=== PATIENT | male | born 1950 | race Caucasian/White ===

== ENCOUNTER 2017-04-05 21:54 | Emergency (ER) | payer OTHER, MEDICARE ==
[~2017-04-05] VITALS: Ht 182.9 cm; Wt 90.7 kg
[~2017-04-05 21:54] MED LIST: ADVIL100 M2 PO; COLACE100 MG PO; COUMADIN 2 MG TA2 M1 PO; COUMADIN 5 MG TA5 M1 PO; ENOXAPARIN40 MG/0.1 INJECTION; HYDROCODON-ACE1 EAC1 PO; IBUPROFEN 200200 M1 PO; NORCO 10-325 T1 EACH PO; OXYCONTIN10 M1 PO; PRILOSEC 20 MG20 MG PO; TRAMADOL 50 MG50 MG PO
== END 2017-04-06 01:28 | disposition home or self-care (01) ==
LOC: ER 21:54
DX: S01.01XA Laceration without foreign body of scalp, initial encounter (principal); F17.210 Nicotine dependence, cigarettes, uncomplicated; F10.99 Alcohol use, unspecified with unspecified alcohol-induced disorder; Z98.890 Other specified postprocedural states; W18.09XA Striking against other object with subsequent fall, initial encounter; Y93.89 Activity, other specified; Y92.092 Bedroom in other non-institutional residence as the place of occurrence of the external cause; Y99.8 Other external cause status

== ENCOUNTER → 2017-07-17 | Outpatient (CLI) | payer OTHER, MEDICARE ==
[~2017-07-17] MED LIST changes: +BACTRIM DS TAB1 EACH PO
== END ==
LOC: NUC 08:10
DX: M25.561 Pain in right knee (principal); M79.89 Other specified soft tissue disorders; K21.9 Gastro-esophageal reflux disease without esophagitis; M81.0 Age-related osteoporosis without current pathological fracture; Z96.651 Presence of right artificial knee joint

== ENCOUNTER 2017-08-04 08:49 | Emergency (ER) | payer OTHER, MEDICARE ==
[~2017-08-04] VITALS: Ht 180.3 cm; Wt 88.5 kg
[~2017-08-04 08:49] MED LIST changes: -BACTRIM DS TAB1 EACH PO
[2017-08-04] MEDS ORDERED: BACTRIM DS TAB1 EACH PO (09:16)
[2017-08-04] MEDS ORDERED: TRAMADOL 50 MG50 MG PO (09:16)
[2017-08-04 09:25] VITALS: BP 132/67
== END 2017-08-04 09:55 | disposition home or self-care (01) ==
LOC: ER 08:49
DX: L97.819 Non-pressure chronic ulcer of other part of right lower leg with unspecified severity (principal); Z90.49 Acquired absence of other specified parts of digestive tract; Z98.890 Other specified postprocedural states

== ENCOUNTER → 2017-08-06 | Outpatient (CLI) | payer OTHER, MEDICARE ==
[~2017-08-06] MED LIST changes: +BACTRIM DS TAB1 EACH PO
== END ==
LOC: HYPER 06:42
DX: T81.89XA Other complications of procedures, not elsewhere classified, initial encounter (principal); I87.311 Chronic venous hypertension (idiopathic) with ulcer of right lower extremity; L97.811 Non-pressure chronic ulcer of other part of right lower leg limited to breakdown of skin; I73.9 Peripheral vascular disease, unspecified; M19.90 Unspecified osteoarthritis, unspecified site; F17.210 Nicotine dependence, cigarettes, uncomplicated; Z72.89 Other problems related to lifestyle; Y92.89 Other specified places as the place of occurrence of the external cause; Y83.8 Other surgical procedures as the cause of abnormal reaction of the patient, or of later complication, without mention of misadventure at the time of the procedure

== ENCOUNTER → 2017-08-13 | Outpatient (CLI) | payer OTHER, MEDICARE | LOC: HYPER 06:36 | DX: T81.89XD Other complications of procedures, not elsewhere classified, subsequent encounter (principal); I87.311 Chronic venous hypertension (idiopathic) with ulcer of right lower extremity; L97.811 Non-pressure chronic ulcer of other part of right lower leg limited to breakdown of skin; I73.9 Peripheral vascular disease, unspecified; M19.90 Unspecified osteoarthritis, unspecified site; F17.210 Nicotine dependence, cigarettes, uncomplicated; Y83.8 Other surgical procedures as the cause of abnormal reaction of the patient, or of later complication, without mention of misadventure at the time of the procedure ==

== ENCOUNTER → 2019-04-08 | Outpatient (CLI) | payer OTHER, MEDICARE ==
[~2019-04-08] VITALS: Ht 180.3 cm; Wt 90.7 kg
[~2019-04-08] MED LIST changes: +OMEPRAZOLE 20 M20 M1 PO; +ROPINIROLE HCL4 MG PO; +VITAMIN D2000 UNIT PO; +XARELTO20 MG PO
--- NOTE | 2019-04-10 08:09 | P ---
[facility] [place] [address] PROCEDURE REPORT Name: JEM HENSLEY [facility] [id number] Admission: 04/08/19 Attend Phys: Luis Manuel Rogers Discharge: Date of : 52 Report #: [id number] THIS REPORT FOR: //name// CC: Luis Manuel Motley MD DATE OF SERVICE: 04/08/2019 PROCEDURE PERFORMED: Colonoscopy with biopsies. HISTORY OF PRESENT ILLNESS: The patient is a 69-year-old male who I was asked to see colonoscopy greater than 10 years ago. He does report several episodes of bright red blood per rectum, typically with constipation. No family history of colon cancer. He apparently is scheduled for hemorrhoid surgery in the near future. DESCRIPTION OF PROCEDURE: The risks and benefits of the procedure were explained to the patient, those risks including but not limited to bleeding, perforation and the risk of sedation. He understood these risks and gave informed consent. Sedation was given using propofol per anesthesia. Next, a digital rectal exam was initially performed, which was normal. Next, using a standard Olympus upper colonoscope, the scope was placed in the patient's anus and advanced under direct vision to the cecum. The overall prep was good in most areas. It was fair in some areas. Multiple washings and aspirations were performed. Most areas were well visualized. The cecum and ileocecal valve were normal in appearance. In the ascending colon, a 5 mm sessile polyp was noted. This was removed with cold forceps, otherwise normal. The transverse, descending and sigmoid colon were normal. The rectal mucosa was normal. On retroflexion, medium size nonbleeding internal hemorrhoids were noted. Close examination of the anal canal showed no evidence of anal fissure. Small external hemorrhoid also noted. No evidence of bleeding. The scope was then withdrawn and the procedure terminated. The patient tolerated the procedure well. IMPRESSION: 1. Small colonic polyp. 2. Internal and external hemorrhoids. 3. Otherwise, normal colonoscopy. RECOMMENDATIONS: 1. Await biopsy results. 2. Repeat colonoscopy in [address] [address] PROCEDURE REPORT Name: JEM HENSLEY Room #: REG [facility] Christopher#: [id number] Admission: 04/08/19 Attend Phys: Luis Manuel Rogers Discharge: Date of : 52 Report #: [id number] Thank you for allowing me to participate in his care. <ELECTRONICALLY SIGNED> By: Luis Manuel Jackson MD 04/10/19 0809 [id number] [id number] Luis Manuel Jackson MD /nt
--- NOTE | 2019-04-10 08:09 | P ---
[facility] [place] [address] PROCEDURE REPORT Name: JEM HENSLEY Room #: REG THU White#: [id number] Admission: 04/08/19 Attend Phys: Luis Manuel Rogers Discharge: Date of : 52 Report #: [id number] THIS REPORT FOR: //name// CC: Luis Manuel Romano MD DATE OF SERVICE: 04/08/2019 PROCEDURE PERFORMED: Upper endoscopy with biopsies. HISTORY OF PRESENT ILLNESS: The patient is a 69-year-old male with a long history of gastroesophageal reflux disease, currently taking Prilosec 20 mg b.i.d. He denies any significant heartburn symptoms in general. Denies any dysphagia. Last upper endoscopy several years ago showed a possible segment of Arnold's. Biopsies were actually negative at that time for Arnold's esophagus. Plan is for repeat upper endoscopy and colonoscopy today. DESCRIPTION OF PROCEDURE: The risks and benefits of the procedure were explained to the patient, those risks including but not limited to bleeding, perforation and the risk of sedation. He understood these risks and gave informed consent. Sedation was given using propofol per Anesthesia. Next, using a standard Olympus upper endoscope, the scope was placed in the patient's mouth and advanced under direct vision through the esophagus, stomach and into the second portion of the duodenum. The upper and mid esophagus was normal in appearance. In the distal esophagus, a pink mucosal tongue extended approximately 3 cm above the GE junction consistent with possible Arnold's esophagus. Biopsies were obtained. No evidence of esophagitis or stricture. Overall, the gastric mucosa was normal. The pylorus was normal and patent. The duodenal bulb, first and second portion were all normal. The scope was then withdrawn and the procedure terminated. The patient tolerated the procedure well. IMPRESSION: 1. Possible short segment Arnold's esophagus. 2. Otherwise, normal upper endoscopy. RECOMMENDATIONS: 1. Await biopsy results. 2. Continue PPI therapy. 3. We will proceed with colonoscopy next today. [address] [address] PROCEDURE REPORT Name: JEM HENSLEY Room #: REG THU White#: [id number] Admission: 04/08/19 Attend Phys: Luis Manuel Rogers Discharge: Date of : 52 Report #: [id number] Thank you for allowing me to participate in his care. <ELECTRONICALLY SIGNED> By: Luis Manuel Jackson MD 04/10/19 0809 0849 2131 Luis Manuel Jackson MD /nt
--- NOTE | 2019-04-10 14:07 | PATH ---
[facility] [place] [address] PATHOLOGY RPT PROCEDURE Name: SHELLIEJEM MEGAN Room #: REG CLBruce MLakeishaR.#: [id number] Admission: 04/08/19 Date of : 52 Discharge: Report #: [id number] Path Case #: [id number] [facility] Accession Number: [id number] . 01 Material submitted: . PART A: esophagus - BX DISTAL ESOPHAGUS. Modifiers: distal PART B: colon - POLYP AT ASCENDING COLON. Modifiers: ascending . 01 Clinical history: . Arnold's, rectal bleeding Possible Arnold's, colon polyp, hemorrhoids A. Rule out Arnold's esophagus . 02 Diagnosis: A. Esophagus, distal, biopsy: - Squamocolumnar epithelium with intestinal metaplasia, findings compatible with Arnold's esophagus. - Mild chronic inflammation. - No evidence of dysplasia. . B. Colon, ascending, biopsy: - Hyperplastic polyps, 2. (JITENDRA:rosalba; 04/10/2019) S 04/10/2019 0950 Local . 02 Electronically signed: . Benny Martinez MD, Pathologist NPI- [id number] . 01 Gross description: . A. The specimen is received in formalin, labeled "Jem Muñoz, BX distal esophagus" and consists of 3 fragments of coker tissue measuring between 0.2 x 0.2 cm and 0.4 x 0.4 cm which are entirely submitted in A1. . B. The specimen is received in formalin, labeled "Jem Muñoz, polyp at ascending colon" and consists of 2 fragments of coker tissue measuring 0.4 x 0.3 cm each which are entirely submitted in B1. (SDY; 04/09/2019) SYU/SYU 04/09/2019 1034 Local . 02 Pathologist provided ICD-10: K22.70, K63.5 . 02 CPT . 787995, 836387 Specimen Comment: A courtesy copy of this report has been sent to Specimen Comment: [phone], [phone]. [address] [address] PATHOLOGY RPT PROCEDURE Name: JEM MUÑOZ Room #: REG THU White#: [id number] Admission: 04/08/19 Date of : 52 Discharge: Report #: [id number] Path Case #: [id number] Specimen Comment: Report sent to / DR JACK Performed at: [address], [place], [place] [id number] MD Iggy Buckner MD Phone: [phone] Performed at: [address] [id number] MD Sheridan Ruggiero MD Phone: [phone]
== END | disposition home or self-care (01) ==
LOC: GI 06:58
DX: K62.5 Hemorrhage of anus and rectum (principal); K63.5 Polyp of colon; K59.00 Constipation, unspecified; K64.8 Other hemorrhoids; K60.2 Anal fissure, unspecified; K64.4 Residual hemorrhoidal skin tags; K20.9 Esophagitis, unspecified; K21.9 Gastro-esophageal reflux disease without esophagitis; F17.210 Nicotine dependence, cigarettes, uncomplicated; I73.89 Other specified peripheral vascular diseases; Z86.718 Personal history of other venous thrombosis and embolism; Z90.49 Acquired absence of other specified parts of digestive tract; Z79.899 Other long term (current) drug therapy
CPT/HCPCS: 62110; 62900

== ENCOUNTER → 2019-04-16 | Outpatient (CLI) | payer OTHER, MEDICARE | LOC: ULTRA 14:47 | DX: M79.89 Other specified soft tissue disorders (principal); M79.604 Pain in right leg; M79.605 Pain in left leg ==

== ENCOUNTER → 2021-04-26 | Outpatient (CLI) | payer OTHER, MEDICARE ==
[~2021-04-26] MED LIST changes: +FLEXERIL PO; +MIRAPEX1 MG PO
== END | disposition home or self-care (01) ==
LOC: LAB 08:52
PROVIDERS: ATTEND Student in an Organized Health Care Education/Training Program
DX: Z01.818 Encounter for other preprocedural examination (principal); Z20.822 Contact with and (suspected) exposure to COVID-19

== ENCOUNTER → 2021-04-28 | Outpatient (CLI) | payer OTHER, MEDICARE ==
[~2021-04-28] VITALS: Ht 180.3 cm; Wt 97.5 kg
--- NOTE | ~2021-04-28 | P ---
[facility] [place] [address] [address] PROCEDURE REPORT Name: JEM HENSLEY Room #: REG [facility] Marisela.#: [id number] Admission: 04/28/21 Attend Phys: Luis Manuel Rogers Discharge: Date of : 52 Report #: [id number] THIS REPORT FOR: cc: Francis Romano MD, Neal A. MD McElhinney, Christian C. MD ~ cc: Francis Romano MD DATE OF SERVICE: 04/28/2021 PROCEDURE PERFORMED: Flexible sigmoidoscopy with polypectomy. HISTORY OF PRESENT ILLNESS: The patient is a 71-year-old male who reports intermittent bright red blood per rectum, typically with wiping. He does have a history of constipation and takes fiber in general. He underwent a colonoscopy by myself on 04/08/2019, small polyp was removed. Internal and external hemorrhoids were seen, otherwise normal. No family history of colon cancer. DESCRIPTION OF PROCEDURE: The risks and benefits of the procedure were explained to the patient, those risks including but not limited to bleeding, perforation and the risk of sedation. He understood these risks and gave informed consent. Sedation was given using propofol per anesthesia. Next, a digital rectal exam was initially performed, which was normal. Next, using a standard Olympus colonoscope, the scope was placed in the patient's anus and advanced into the transverse, ascending colon area, at which point the prep was poor in the right colon. Therefore, I did not proceed with a full colonoscopy, instead this is a flexible sigmoidoscopy. The area of the transverse and descending and sigmoid colon that were visualized were normal. Several washings and aspirations were performed. In the distal rectum, there was a 1.2 cm partially pedunculated polyp, this was removed by snare cautery. On retroflexion, small nonbleeding internal hemorrhoids were noted. The scope was then withdrawn and the procedure terminated. The patient tolerated the procedure well. IMPRESSION: 1. Distal rectal polyp was friable, status post removal today. I suspect this may be etiology of intermittent bleeding. 2. Small internal hemorrhoids, nonbleeding. Also, possible source of bleeding. 3. Otherwise, normal flexible sigmoidoscopy. RECOMMENDATIONS: 1. Await biopsy results. 2. Would repeat colonoscopy in [address] [address] PROCEDURE REPORT Name: JEM HENSLEY Room #: REG THU White#: [id number] Admission: 04/28/21 Attend Phys: Luis Manuel Rogers Discharge: Date of : 52 Report #: [id number] Thank you for allowing me to participate in his care. By: 1115 0013 Luis Manuel Jackson MD /nt
--- NOTE | 2021-05-01 19:06 | PATH ---
[facility] [address] [place] [address] PATHOLOGY RPT PROCEDURE Name: JEM MUOÑZ Room #: REG THU M.R.#: [id number] Admission: 04/28/21 Date of : 52 Discharge: Report #: [id number] Path Case #: [id number] [facility] Accession Number: [id number] . 01 Material submitted: . rectum - RECTAL POLYP . 01 Clinical history: . COLONOSCOPY RECTAL BLEEDING RECTAL POLYP/INTERNAL HEMORRHOIDS . 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 - No definitive high-grade dysplasia or malignancy identified within the superficial fragments. (IUV:security associate; 05/01/2021) MBR 05/01/2021 1639 Local . 02 Electronically signed: . Sheridan Ruggiero MD, Pathologist NPI- [id number] . 01 Gross description: . Received in formalin labeled "Jem Muñoz, rectal polyp" is a coker-brown nodular mucosal polyp measuring 2.0 x 1.6 x 1.2 cm. The possible resection margin is inked black. The polyp is sectioned and submitted in A1. Also present within the container are multiple smaller coker-brown friable tissue fragments measuring in aggregate 1.4 x 1.4 x 0.2 cm, which are submitted without sectioning in A2. ([facility]; 04/29/2021) [facility] 04/29/2021 1151 Local . 02 Pathologist provided ICD-10: D12.8 . 02 CPT . 045273 Specimen Comment: A courtesy copy of this report has been sent to [phone], [phone] Specimen Comment: [phone] Specimen Comment: Report sent to DR. HOPE / DR JACK Specimen Comment: Report sent to Performed at: [address] [id number] MD Leobardo Artis MD Phone: [phone] [place] [address] PATHOLOGY RPT PROCEDURE Name: JEM MUÑOZ MEGAN Room #: REG THU White#: [id number] Admission: 04/28/21 Date of : 52 Discharge: Report #: [id number] Path Case #: [id number] Performed at: [address] [id number] MD Sheridan Ruggiero MD Phone: [phone]
== END | disposition home or self-care (01) ==
LOC: GI 09:08
PROVIDERS: ATTEND Specialist
DX: K62.5 Hemorrhage of anus and rectum (principal); D12.8 Benign neoplasm of rectum; K64.8 Other hemorrhoids; I73.9 Peripheral vascular disease, unspecified; K21.9 Gastro-esophageal reflux disease without esophagitis; F17.210 Nicotine dependence, cigarettes, uncomplicated; Z98.890 Other specified postprocedural states; Z79.899 Other long term (current) drug therapy; Z86.718 Personal history of other venous thrombosis and embolism; Z79.01 Long term (current) use of anticoagulants
CPT/HCPCS: 62110; 62900